=== PATIENT | male | born 1960 | race African-American/Black ===

== ENCOUNTER 2020-05-23 13:53 | Inpatient (IN) | payer OTHER ==
[2020-05-23 17:28] VITALS: BMI 24.5
[2020-05-23] MEDS ORDERED: IBUPROFEN 400 MG TABLET (FP) PO PRN (17:29)
[2020-05-23] MEDS ORDERED: LOPERAMIDE HCL 2 MG CAPSULE PO PRN (17:29)
[2020-05-23] MEDS ORDERED: guaiFENesin 200 MG/10 ML 10 ML UNIT-DOSE CUPS PO PRN (17:29)
[2020-05-23] MEDS ORDERED: NICOTINE POLACRILEX 2 MG GUM BC PRN (17:29)
[2020-05-23] MEDS ORDERED: ACETAMINOPHEN 325 MG TABLET (FP) PO PRN (17:29)
[2020-05-23] MEDS ORDERED: MAG HYDROX/AL HYDROX/SIMETH 30 ML UNIT-DOSE CUP PO PRN (17:29)
[2020-05-23] MEDS ORDERED: P-EPHED 60MG/TRIPROLIDI 2.5MG TABLET PO PRN (17:29)
[2020-05-23] MEDS ORDERED: MAGNESIUM HYDROX 2400MG/30ML ORAL SUSPENSION 30 ML CUP PO PRN (17:29)
[2020-05-23] MEDS ORDERED: MAGNESIUM CITRATE 300 ML BOTTLE PO PRN (17:29)
[2020-05-23] MEDS ORDERED: ALBUTEROL SO4 HFA INHALER IH PRN (17:31)
[2020-05-23] MEDS ORDERED: TUBERCULIN PPD 5 TU/0.1ML VIAL ID ONE (18:57)
[2020-05-23] MEDS: THIAMINE HCL 100 MG TABLET (FP) PO SCH (21:45)
[2020-05-23] MEDS ORDERED: MELATONIN 5 MG TABLETS PO SCH (22:00)
[2020-05-24] MEDS: PRENATAL VITAMINS W/ FOLIC ACID TABLET (FP) PO SCH (09:38)
[2020-05-24] MEDS: NICOTINE 21 MG/24 HOURS TOPICAL PATCH TD SCH (09:39)
[2020-05-24] MEDS: CITALOPRAM HYDROBROMIDE 20 MG TABLET PO SCH (10:03)
[2020-05-24 13:27] LABS: HEMATOCRIT 41.4 % (35.4-49); HEMOGLOBIN 13.9 GM/dL (11.7-16.9); MCH 32.5 pg (25.7-33.7); MCHC 33.7 g/dl (32.0-35.9); MEAN CELL VOLUME 96.6 fl (80-96); MEAN PLT VOLUME 12.1 fl (7.5-11.1); PLATELET COUNT 159 K/MM3 (134-434); RBC 4.28 M/mm3 (4.00-5.60); RDW 12.9 % (11.9-15.9); WHITE BLOOD COUNT 4.9 K/mm3 (4.0-10.0)
[2020-05-24 13:39] LABS: CALCIUM 9.3 mg/dL (8.5-10.1)
[2020-05-24 13:41] LABS: ALBUMIN 3.4 g/dl (3.4-5.0); BLOOD UREA NITROGEN 17.4 mg/dL (7-18)
[2020-05-24 13:44] LABS: BILIRUBIN,TOTAL 0.4 mg/dL (0.2-1); CREATININE 0.7 mg/dL (0.55-1.3)
[2020-05-24] MEDS: MELATONIN 5 MG TABLETS PO PRN (21:28)
[2020-05-24] MEDS: THIAMINE HCL 100 MG TABLET (FP) PO SCH (21:28)
[2020-05-25] MEDS: PRENATAL VITAMINS W/ FOLIC ACID TABLET (FP) PO SCH (09:33)
[2020-05-25] MEDS: NICOTINE 21 MG/24 HOURS TOPICAL PATCH TD SCH (09:34)
[2020-05-25] MEDS: CITALOPRAM HYDROBROMIDE 20 MG TABLET PO SCH (10:08)
[2020-05-25 16:49] LABS: PH,URINE 8.5 (5.0-8.0); URINE APPEARANCE CLEAR; URINE BILIRUBIN NEGATIVE (NEGATIVE); URINE COLOR YELLOW; URINE GLUCOSE (UA) NEGATIVE (NEGATIVE); URINE KETONE NEGATIVE (NEGATIVE); URINE LEUK ESTERASE NEGATIVE (NEGATIVE); URINE NITRITE NEGATIVE (NEGATIVE); URINE PROTEIN NEGATIVE (NEGATIVE); URINE UROBILINOGEN 0.2 mg/dL (0.2-1.0)
[2020-05-25] MEDS: MELATONIN 5 MG TABLETS PO PRN (21:19)
[2020-05-25] MEDS: THIAMINE HCL 100 MG TABLET (FP) PO SCH (21:19)
[2020-05-26] MEDS: PRENATAL VITAMINS W/ FOLIC ACID TABLET (FP) PO SCH (09:46)
[2020-05-26] MEDS: NICOTINE 21 MG/24 HOURS TOPICAL PATCH TD SCH (09:47)
[2020-05-26] MEDS: CITALOPRAM HYDROBROMIDE 20 MG TABLET PO SCH (09:47)
[2020-05-26] MEDS: THIAMINE HCL 100 MG TABLET (FP) PO SCH (21:36)
[2020-05-26] MEDS: MELATONIN 5 MG TABLETS PO PRN (21:36)
[2020-05-27] MEDS: PRENATAL VITAMINS W/ FOLIC ACID TABLET (FP) PO SCH (09:51)
[2020-05-27] MEDS: hydrOXYzine PAMOATE 25 MG CAPSULE (FP) PO PRN (09:51)
[2020-05-27] MEDS: CITALOPRAM HYDROBROMIDE 20 MG TABLET PO SCH (09:51)
[2020-05-27] MEDS: NICOTINE 21 MG/24 HOURS TOPICAL PATCH TD SCH (09:52)
[2020-05-27 10:07] LABS: SARS-CoV-2 NAA Not Detected (Not Detected)
[2020-05-27] MEDS: THIAMINE HCL 100 MG TABLET (FP) PO SCH (22:00)
[2020-05-28] MEDS: CITALOPRAM HYDROBROMIDE 20 MG TABLET PO SCH (09:50)
[2020-05-28] MEDS: NICOTINE 21 MG/24 HOURS TOPICAL PATCH TD SCH (09:50)
[2020-05-28] MEDS: PRENATAL VITAMINS W/ FOLIC ACID TABLET (FP) PO SCH (09:50)
[2020-05-28] MEDS: THIAMINE HCL 100 MG TABLET (FP) PO SCH (21:28)
[2020-05-28] MEDS: MELATONIN 5 MG TABLETS PO PRN (21:29)
[2020-05-29] MEDS: PRENATAL VITAMINS W/ FOLIC ACID TABLET (FP) PO SCH (09:43)
[2020-05-29] MEDS: NICOTINE 21 MG/24 HOURS TOPICAL PATCH TD SCH (09:43)
[2020-05-29] MEDS: CITALOPRAM HYDROBROMIDE 20 MG TABLET PO SCH (09:43)
[2020-05-29] MEDS: TOLNAFTATE 1% POWDER 45 GM POW TP SCH ×2 (11:55→21:24)
[2020-05-29] MEDS: THIAMINE HCL 100 MG TABLET (FP) PO SCH (21:24)
[2020-05-29] MEDS: hydrOXYzine PAMOATE 25 MG CAPSULE (FP) PO PRN (21:24)
[2020-05-29] MEDS: MELATONIN 5 MG TABLETS PO PRN (21:24)
[2020-05-30] MEDS: NICOTINE 21 MG/24 HOURS TOPICAL PATCH TD SCH (09:38)
[2020-05-30] MEDS: PRENATAL VITAMINS W/ FOLIC ACID TABLET (FP) PO SCH (09:38)
[2020-05-30] MEDS: TOLNAFTATE 1% POWDER 45 GM POW TP SCH ×2 (09:39→21:56)
[2020-05-30] MEDS: CITALOPRAM HYDROBROMIDE 20 MG TABLET PO SCH (09:39)
[2020-05-30] MEDS: THIAMINE HCL 100 MG TABLET (FP) PO SCH (21:57)
[2020-05-30] MEDS: MELATONIN 5 MG TABLETS PO PRN (21:57)
[2020-05-31] MEDS: PRENATAL VITAMINS W/ FOLIC ACID TABLET (FP) PO SCH (09:47)
[2020-05-31] MEDS: CITALOPRAM HYDROBROMIDE 20 MG TABLET PO SCH (09:48)
[2020-05-31] MEDS: TOLNAFTATE 1% POWDER 45 GM POW TP SCH ×2 (09:48→21:44)
[2020-05-31] MEDS: NICOTINE 21 MG/24 HOURS TOPICAL PATCH TD SCH (09:48)
[2020-05-31] MEDS: hydrOXYzine PAMOATE 25 MG CAPSULE (FP) PO PRN (21:43)
[2020-05-31] MEDS: THIAMINE HCL 100 MG TABLET (FP) PO SCH (21:43)
[2020-06-01] MEDS: CITALOPRAM HYDROBROMIDE 20 MG TABLET PO SCH (10:00)
[2020-06-01] MEDS: PRENATAL VITAMINS W/ FOLIC ACID TABLET (FP) PO SCH (10:00)
[2020-06-01] MEDS: NICOTINE 21 MG/24 HOURS TOPICAL PATCH TD SCH (10:00)
[2020-06-01] MEDS: TOLNAFTATE 1% POWDER 45 GM POW TP SCH ×2 (10:00→21:36)
[2020-06-01] MEDS: MELATONIN 5 MG TABLETS PO PRN (21:35)
[2020-06-01] MEDS: THIAMINE HCL 100 MG TABLET (FP) PO SCH (21:35)
[2020-06-01] MEDS: hydrOXYzine PAMOATE 25 MG CAPSULE (FP) PO PRN (21:35)
[2020-06-02] MEDS ORDERED: PT OWN MED DRAWER 7, Y5N ONE (08:42)
[2020-06-02] MEDS: PRENATAL VITAMINS W/ FOLIC ACID TABLET (FP) PO SCH (10:15)
[2020-06-02] MEDS: CITALOPRAM HYDROBROMIDE 20 MG TABLET PO SCH (10:15)
[2020-06-02] MEDS: NICOTINE 21 MG/24 HOURS TOPICAL PATCH TD SCH (10:16)
[2020-06-02] MEDS: TOLNAFTATE 1% POWDER 45 GM POW TP SCH ×2 (11:14→21:47)
[2020-06-02] MEDS: hydrOXYzine PAMOATE 25 MG CAPSULE (FP) PO PRN (21:29)
[2020-06-02] MEDS: MELATONIN 5 MG TABLETS PO PRN (21:29)
[2020-06-02] MEDS: THIAMINE HCL 100 MG TABLET (FP) PO SCH (21:29)
[2020-06-03] MEDS ORDERED: PT OWN MED DRAWER 7, Y5N ONE ×2 (08:58→20:35)
[2020-06-03] MEDS: CITALOPRAM HYDROBROMIDE 20 MG TABLET PO SCH (10:01)
[2020-06-03] MEDS: NICOTINE 21 MG/24 HOURS TOPICAL PATCH TD SCH (10:01)
[2020-06-03] MEDS: PRENATAL VITAMINS W/ FOLIC ACID TABLET (FP) PO SCH (10:01)
[2020-06-03] MEDS: TOLNAFTATE 1% POWDER 45 GM POW TP SCH ×2 (10:02→22:07)
[2020-06-03] MEDS: THIAMINE HCL 100 MG TABLET (FP) PO SCH (22:07)
[2020-06-04] MEDS ORDERED: PT OWN MED DRAWER 7, Y5N ONE (08:55)
[2020-06-04] MEDS: CITALOPRAM HYDROBROMIDE 20 MG TABLET PO SCH (10:26)
[2020-06-04] MEDS: PRENATAL VITAMINS W/ FOLIC ACID TABLET (FP) PO SCH (10:26)
[2020-06-04] MEDS: TOLNAFTATE 1% POWDER 45 GM POW TP SCH ×2 (10:27→21:18)
[2020-06-04] MEDS: NICOTINE 21 MG/24 HOURS TOPICAL PATCH TD SCH (10:27)
[2020-06-04] MEDS: hydrOXYzine PAMOATE 25 MG CAPSULE (FP) PO PRN (21:17)
[2020-06-04] MEDS: THIAMINE HCL 100 MG TABLET (FP) PO SCH (21:17)
[2020-06-04] MEDS: MELATONIN 5 MG TABLETS PO PRN (21:18)
[2020-06-05] MEDS ORDERED: PT OWN MED DRAWER 7, Y5N ONE ×2 (09:20→20:26)
[2020-06-05] MEDS: PRENATAL VITAMINS W/ FOLIC ACID TABLET (FP) PO SCH (10:14)
[2020-06-05] MEDS: NICOTINE 21 MG/24 HOURS TOPICAL PATCH TD SCH (10:15)
[2020-06-05] MEDS: CITALOPRAM HYDROBROMIDE 20 MG TABLET PO SCH (10:15)
[2020-06-05] MEDS: TOLNAFTATE 1% POWDER 45 GM POW TP SCH ×2 (10:15→21:36)
[2020-06-05] MEDS: THIAMINE HCL 100 MG TABLET (FP) PO SCH (21:35)
[2020-06-06 07:00] VITALS: BP 106/60; PULSE 56; TEMP 97.7
[2020-06-06] MEDS ORDERED: PT OWN MED DRAWER 7, Y5N ONE (08:56)
[2020-06-06] MEDS: NICOTINE 21 MG/24 HOURS TOPICAL PATCH TD SCH (10:03)
[2020-06-06] MEDS: CITALOPRAM HYDROBROMIDE 20 MG TABLET PO SCH (10:03)
[2020-06-06] MEDS: PRENATAL VITAMINS W/ FOLIC ACID TABLET (FP) PO SCH (10:03)
[2020-06-06] MEDS: TOLNAFTATE 1% POWDER 45 GM POW TP SCH (10:04)
== END 2020-06-06 10:30 | disposition home or self-care (01) | DRG 772 ==
LOC: YASAS 13:53 → Y5N 17:42
PROVIDERS: ADMIT Allergy & Immunology; ATTEND Allergy & Immunology
PROC: HZ42ZZZ Group Counseling for Substance Abuse Treatment, Cognitive-Behavioral (ICD-10-PCS; principal; 2020-05-23)
DX: F10.20 Alcohol dependence, uncomplicated (principal); F10.24 Alcohol dependence with alcohol-induced mood disorder; F17.210 Nicotine dependence, cigarettes, uncomplicated; F10.282 Alcohol dependence with alcohol-induced sleep disorder; F20.9 Schizophrenia, unspecified; Z91.5 Personal history of self-harm; Z56.0 Unemployment, unspecified; Z59.0 Homelessness; Z88.0 Allergy status to penicillin; Z91.018 Allergy to other foods
CPT/HCPCS: 36415; 80053; 81003; 85027; 86780; 93005; 93010; C9803; U0003; U0005

== ENCOUNTER 2021-05-25 14:14 | Inpatient (IN) | payer BC ==
[2021-05-25] MEDS ORDERED: guaiFENesin 200 MG/10 ML 10 ML UNIT-DOSE CUPS PO PRN (16:59)
[2021-05-25] MEDS ORDERED: LOPERAMIDE HCL 2 MG CAPSULE PO PRN (16:59)
[2021-05-25] MEDS ORDERED: BENZOCAINE/MENTHOL (CHLORASEPTIC ) LOZENGE MM PRN (16:59)
[2021-05-25] MEDS ORDERED: MAGNESIUM HYDROX 2400MG/30ML ORAL SUSPENSION 30 ML CUP PO PRN (16:59)
[2021-05-25] MEDS ORDERED: IBUPROFEN 400 MG TABLET (FP) PO PRN (16:59)
[2021-05-25] MEDS ORDERED: MAGNESIUM CITRATE 300 ML BOTTLE PO PRN (16:59)
[2021-05-25] MEDS ORDERED: MAG HYDROX/AL HYDROX/SIMETH 30 ML UNIT-DOSE CUP PO PRN (16:59)
[2021-05-25] MEDS ORDERED: P-EPHED 60MG/TRIPROLIDI 2.5MG TABLET PO PRN (16:59)
[2021-05-25 17:40] VITALS: BMI 25.7
[2021-05-25] MEDS ORDERED: ALBUTEROL SO4 HFA INHALER IH PRN (18:00)
[2021-05-25] MEDS: THIAMINE HCL 100 MG TABLET (FP) PO SCH (21:14)
[2021-05-25] MEDS: MELATONIN 5 MG TABLETS PO PRN (21:14)
[2021-05-25] MEDS ORDERED: QUEtiapine FUMARATE 50 MG TABLET PO ONE (22:00)
[2021-05-26] MEDS: PRENATAL VITAMINS W/ FOLIC ACID TABLET (FP) PO SCH (09:36)
[2021-05-26] MEDS ORDERED: SERTRALINE HCL 50 MG TABLET (FP) PO ONE (11:00)
[2021-05-26] MEDS: MELATONIN 5 MG TABLETS PO PRN (21:24)
[2021-05-26] MEDS: THIAMINE HCL 100 MG TABLET (FP) PO SCH (21:24)
[2021-05-26] MEDS: QUEtiapine FUMARATE 50 MG TABLET PO SCH (21:24)
[2021-05-27] MEDS: PRENATAL VITAMINS W/ FOLIC ACID TABLET (FP) PO SCH (10:06)
[2021-05-27] MEDS: THIAMINE HCL 100 MG TABLET (FP) PO SCH (21:08)
[2021-05-27] MEDS: MELATONIN 5 MG TABLETS PO PRN (21:08)
[2021-05-27] MEDS: QUEtiapine FUMARATE 50 MG TABLET PO SCH (21:08)
[2021-05-28] MEDS: PRENATAL VITAMINS W/ FOLIC ACID TABLET (FP) PO SCH (10:21)
[2021-05-28] MEDS: QUEtiapine FUMARATE 50 MG TABLET PO SCH (21:34)
[2021-05-28] MEDS: MELATONIN 5 MG TABLETS PO PRN (21:34)
[2021-05-28] MEDS: THIAMINE HCL 100 MG TABLET (FP) PO SCH (21:34)
[2021-05-29] MEDS: PRENATAL VITAMINS W/ FOLIC ACID TABLET (FP) PO SCH (09:47)
[2021-05-29] MEDS: ACETAMINOPHEN 325 MG TABLET (FP) PO PRN (11:49)
[2021-05-29 14:08] LABS: SARS-CoV-2 NAA Not Detected (Not Detected)
[2021-05-29] MEDS: QUEtiapine FUMARATE 50 MG TABLET PO SCH (21:03)
[2021-05-29] MEDS: MELATONIN 5 MG TABLETS PO PRN (21:03)
[2021-05-29] MEDS: THIAMINE HCL 100 MG TABLET (FP) PO SCH (21:04)
[2021-05-30] MEDS: PRENATAL VITAMINS W/ FOLIC ACID TABLET (FP) PO SCH (10:27)
[2021-05-30] MEDS: THIAMINE HCL 100 MG TABLET (FP) PO SCH (21:26)
[2021-05-30] MEDS: QUEtiapine FUMARATE 50 MG TABLET PO SCH (21:26)
[2021-05-30] MEDS: MELATONIN 5 MG TABLETS PO PRN (21:27)
[2021-05-31] MEDS: PRENATAL VITAMINS W/ FOLIC ACID TABLET (FP) PO SCH (10:28)
[2021-05-31] MEDS: QUEtiapine FUMARATE 50 MG TABLET PO SCH (21:38)
[2021-05-31] MEDS: THIAMINE HCL 100 MG TABLET (FP) PO SCH (21:38)
[2021-05-31] MEDS: MELATONIN 5 MG TABLETS PO PRN (21:38)
[2021-06-01] MEDS: PRENATAL VITAMINS W/ FOLIC ACID TABLET (FP) PO SCH (10:39)
[2021-06-01] MEDS: ACETAMINOPHEN 325 MG TABLET (FP) PO PRN (13:44)
[2021-06-01] MEDS: THIAMINE HCL 100 MG TABLET (FP) PO SCH (21:19)
[2021-06-01] MEDS: QUEtiapine FUMARATE 50 MG TABLET PO SCH (21:19)
[2021-06-01] MEDS: MELATONIN 5 MG TABLETS PO PRN (21:19)
[2021-06-02] MEDS: PRENATAL VITAMINS W/ FOLIC ACID TABLET (FP) PO SCH (10:27)
[2021-06-02] MEDS: QUEtiapine FUMARATE 50 MG TABLET PO SCH (21:40)
[2021-06-02] MEDS: MELATONIN 5 MG TABLETS PO PRN (21:40)
[2021-06-02] MEDS: THIAMINE HCL 100 MG TABLET (FP) PO SCH (21:40)
[2021-06-03] MEDS: PRENATAL VITAMINS W/ FOLIC ACID TABLET (FP) PO SCH (10:26)
[2021-06-03] MEDS: THIAMINE HCL 100 MG TABLET (FP) PO SCH (21:12)
[2021-06-03] MEDS: QUEtiapine FUMARATE 50 MG TABLET PO SCH (21:12)
[2021-06-03] MEDS: MELATONIN 5 MG TABLETS PO PRN (21:13)
[2021-06-04] MEDS: PRENATAL VITAMINS W/ FOLIC ACID TABLET (FP) PO SCH (09:49)
[2021-06-04] MEDS: THIAMINE HCL 100 MG TABLET (FP) PO SCH (21:30)
[2021-06-04] MEDS: QUEtiapine FUMARATE 50 MG TABLET PO SCH (21:30)
[2021-06-04] MEDS: MELATONIN 5 MG TABLETS PO PRN (21:30)
[2021-06-05] MEDS: PRENATAL VITAMINS W/ FOLIC ACID TABLET (FP) PO SCH (10:09)
[2021-06-05] MEDS: QUEtiapine FUMARATE 50 MG TABLET PO SCH (21:53)
[2021-06-05] MEDS: THIAMINE HCL 100 MG TABLET (FP) PO SCH (21:53)
[2021-06-06] MEDS: PRENATAL VITAMINS W/ FOLIC ACID TABLET (FP) PO SCH (10:37)
[2021-06-06] MEDS: QUEtiapine FUMARATE 50 MG TABLET PO SCH (21:13)
[2021-06-06] MEDS: MELATONIN 5 MG TABLETS PO PRN (21:13)
[2021-06-06] MEDS: THIAMINE HCL 100 MG TABLET (FP) PO SCH (21:13)
[2021-06-07] MEDS: PRENATAL VITAMINS W/ FOLIC ACID TABLET (FP) PO SCH (10:16)
[2021-06-07] MEDS: MELATONIN 5 MG TABLETS PO PRN (21:28)
[2021-06-07] MEDS: THIAMINE HCL 100 MG TABLET (FP) PO SCH (21:28)
[2021-06-07] MEDS: QUEtiapine FUMARATE 50 MG TABLET PO SCH (21:29)
[2021-06-08] MEDS: PRENATAL VITAMINS W/ FOLIC ACID TABLET (FP) PO SCH (10:37)
[2021-06-08] MEDS: THIAMINE HCL 100 MG TABLET (FP) PO SCH (21:08)
[2021-06-08] MEDS: QUEtiapine FUMARATE 50 MG TABLET PO SCH (21:08)
[2021-06-08] MEDS: MELATONIN 5 MG TABLETS PO PRN (21:08)
[2021-06-09] MEDS: PRENATAL VITAMINS W/ FOLIC ACID TABLET (FP) PO SCH (09:56)
[2021-06-09] MEDS: MELATONIN 5 MG TABLETS PO PRN (21:23)
[2021-06-09] MEDS: QUEtiapine FUMARATE 50 MG TABLET PO SCH (21:23)
[2021-06-09] MEDS: THIAMINE HCL 100 MG TABLET (FP) PO SCH (21:23)
[2021-06-10] MEDS: PRENATAL VITAMINS W/ FOLIC ACID TABLET (FP) PO SCH (10:51)
[2021-06-10] MEDS: THIAMINE HCL 100 MG TABLET (FP) PO SCH (21:04)
[2021-06-10] MEDS: MELATONIN 5 MG TABLETS PO PRN (21:04)
[2021-06-10] MEDS: QUEtiapine FUMARATE 50 MG TABLET PO SCH (21:04)
[2021-06-11] MEDS: PRENATAL VITAMINS W/ FOLIC ACID TABLET (FP) PO SCH (10:06)
[2021-06-11] MEDS: QUEtiapine FUMARATE 50 MG TABLET PO SCH (21:42)
[2021-06-11] MEDS: THIAMINE HCL 100 MG TABLET (FP) PO SCH (21:42)
[2021-06-11] MEDS: MELATONIN 5 MG TABLETS PO PRN (21:42)
[2021-06-12] MEDS: PRENATAL VITAMINS W/ FOLIC ACID TABLET (FP) PO SCH (10:12)
[2021-06-12] MEDS: QUEtiapine FUMARATE 50 MG TABLET PO SCH (21:03)
[2021-06-12] MEDS: ACETAMINOPHEN 325 MG TABLET (FP) PO PRN (21:04)
[2021-06-12] MEDS: THIAMINE HCL 100 MG TABLET (FP) PO SCH (21:04)
[2021-06-12] MEDS: MELATONIN 5 MG TABLETS PO PRN (21:04)
[2021-06-13] MEDS: PRENATAL VITAMINS W/ FOLIC ACID TABLET (FP) PO SCH (10:10)
[2021-06-13] MEDS: MELATONIN 5 MG TABLETS PO PRN (21:13)
[2021-06-13] MEDS: QUEtiapine FUMARATE 50 MG TABLET PO SCH (21:14)
[2021-06-13] MEDS: THIAMINE HCL 100 MG TABLET (FP) PO SCH (21:14)
[2021-06-14] MEDS: PRENATAL VITAMINS W/ FOLIC ACID TABLET (FP) PO SCH (09:51)
[2021-06-14] MEDS: THIAMINE HCL 100 MG TABLET (FP) PO SCH (21:12)
[2021-06-14] MEDS: MELATONIN 5 MG TABLETS PO PRN (21:12)
[2021-06-14] MEDS: QUEtiapine FUMARATE 50 MG TABLET PO SCH (21:12)
[2021-06-15 07:05] VITALS: TEMP 98
[2021-06-15] MEDS: PRENATAL VITAMINS W/ FOLIC ACID TABLET (FP) PO SCH (09:34)
[2021-06-15 10:13] VITALS: BP 115/73; PULSE 79
== END 2021-06-15 10:23 | disposition home or self-care (01) | DRG 772 ==
LOC: YASAS 14:14 → Y3W 17:50
PROVIDERS: ADMIT Allergy & Immunology; ATTEND Allergy & Immunology
PROC: HZ42ZZZ Group Counseling for Substance Abuse Treatment, Cognitive-Behavioral (ICD-10-PCS; principal; 2021-05-25)
DX: F10.20 Alcohol dependence, uncomplicated (principal); F17.210 Nicotine dependence, cigarettes, uncomplicated; F10.24 Alcohol dependence with alcohol-induced mood disorder; F31.9 Bipolar disorder, unspecified; F20.9 Schizophrenia, unspecified; F19.259 Other psychoactive substance dependence with psychoactive substance-induced psychotic disorder, unspecified; F10.282 Alcohol dependence with alcohol-induced sleep disorder; Z56.0 Unemployment, unspecified; Z59.00 Homelessness unspecified
CPT/HCPCS: C9803-CS; U0003; U0005